=== PATIENT | female | born 1950 | race Two or more races ===

== ENCOUNTER 2021-06-20 12:15 | Inpatient (IN) | payer OTHER ==
[~2021-06-20] VITALS: Ht 162.6 cm; Wt 70.3 kg
[2021-06-20] MEDS ORDERED: ATORVASTA PO (15:17)
[2021-06-20] MEDS ORDERED: GENFIBROZIL PO (15:34)
[2021-06-22] MEDS ORDERED: MAXIMUM D3325 MCG (16:24)
[2021-06-22] MEDS ORDERED: GEMFIBROZIL600 MG (16:25)
[2021-06-22] MEDS ORDERED: ATORVASTATIN CA20 MG (16:25)
== END 2021-06-24 13:43 | disposition home or self-care (01) | DRG 743 ==
LOC: O/R 06-22 09:52 → OB/GYN 06-22 10:45
PROVIDERS: ADMIT Specialist; ATTEND Specialist
PROC: 0UT70ZZ Resection of Bilateral Fallopian Tubes, Open Approach (ICD-10-PCS; 2021-06-22)
PROC: 0UT20ZZ Resection of Bilateral Ovaries, Open Approach (ICD-10-PCS; 2021-06-22)
PROC: 0UB00ZZ Excision of Right Ovary, Open Approach (ICD-10-PCS; 2021-06-22)
PROC: 3E1M38Z Irrigation of Peritoneal Cavity using Irrigating Substance, Percutaneous Approach (ICD-10-PCS; 2021-06-22)
PROC: 0UT90ZZ Resection of Uterus, Open Approach (ICD-10-PCS; principal; 2021-06-22 10:45)
DX: D25.1 Intramural leiomyoma of uterus (principal); Z20.822 Contact with and (suspected) exposure to COVID-19; N83.291 Other ovarian cyst, right side; N83.292 Other ovarian cyst, left side